=== PATIENT | male | born 1975 | race Caucasian/White ===

== ENCOUNTER → 2022-08-14 09:03 | Outpatient (BNVA) | payer SELFPAY | PROVIDERS: Visit Provider Nurse Practitioner Family | DX: S99.921A Unspecified injury of right foot, initial encounter (principal); W22.8XXA Striking against or struck by other objects, initial encounter | CPT/HCPCS: 73630 ==

== ENCOUNTER 2022-11-25 16:42 | Emergency (ER) | payer SELFPAY ==
[2022-11-25 16:59] VITALS: BP 151/88; PULSE 73; RESP 18; TEMP 36.4; O2SAT 97
[2022-11-25 17:05] VITALS: BP 156/95; PULSE 81; RESP 16; O2SAT 97
--- NOTE | 2022-11-25 17:16 | CTR_ITS ---
PROCEDURE INFORMATION: Exam: CT Maxillofacial Without Contrast Exam date and time: 11/25/2022 5:23 PM Age: 47 years old Clinical indication: Injury or trauma; Other: Tree limb to nose; Work related; Blunt trauma (contusions or hematomas) TECHNIQUE: Imaging protocol: Computed tomography of the face without contrast. Radiation optimization: All CT scans at this facility use at least one of these dose optimization techniques: automated exposure control; mA and/or kV adjustment per patient size (includes targeted exams where dose is matched to clinical indication); or iterative reconstruction. Other protocol: This patient has received 2 known CTs and 0 known cardiac nuclear medicine studies in the 12 months prior to the current study. COMPARISON: No relevant prior studies available. RADIATION DOSE METRICS: Total DLP (mGy-cm): 628.9 FINDINGS: Orbital cavities: Orbits are normal. Globes are unremarkable. Bones/joints: There are comminuted bilateral nasal bone fractures with displacement. Minimally displaced fractures also seen in the bony nasal septum. No other facial bone fractures. Paranasal sinuses: Normal. No air-fluid levels. Soft tissues: Soft tissue swelling is seen in the nose. Dental disease. CT/CT facial bones wo con* [id number] IMPRESSION: Comminuted and displaced bilateral nasal bone fractures with minimally displaced bony nasal septal fracture and overlying soft tissue swelling of the nose.
--- NOTE | 2022-11-25 17:16 | CTR_ITS ---
PROCEDURE INFORMATION: Exam: CT Cervical Spine Without Contrast Exam date and time: 11/25/2022 5:23 PM Age: 47 years old Clinical indication: Injury or trauma; Other: Tree limb to face; Blunt trauma TECHNIQUE: Imaging protocol: Computed tomography of the cervical spine without contrast. Radiation optimization: All CT scans at this facility use at least one of these dose optimization techniques: automated exposure control; mA and/or kV adjustment per patient size (includes targeted exams where dose is matched to clinical indication); or iterative reconstruction. Other protocol: This patient has received 2 known CTs and 0 known cardiac nuclear medicine studies in the 12 months prior to the current study. COMPARISON: CT head wo con* [id number] 11/25/2022 5:23 PM RADIATION DOSE METRICS: Total DLP (mGy-cm): 275.4 FINDINGS: Bones/joints: No acute fracture. Normal alignment. No significant disc bulge or herniation. No severe spinal canal stenosis. No significant neural foraminal narrowing. Lungs: Lung apices are normal. Soft tissues: Unremarkable. CT/CT cervical spin wo con* [id number] IMPRESSION: No acute findings.
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
--- NOTE | 2022-11-27 09:27 | DCPLANNER ---
Addendum entered by Latonya Zayas 12/21/22 08:09: facilities project manager received the following message from the ENT clinic regarding follow up appointment: spoke to pt, he states he has seen janae, and will call our office if he continues to have issues Original Note: facilities project manager had message to schedule a follow up appointment for patient with ENT. facilities project manager sent patients information to the front office staff at ENT. Patients information will be printed and reviewed. Clinic will call patient with appointment information.
== END 2022-11-25 19:25 | disposition home or self-care (01) ==
PROVIDERS: Emergency Provider Emergency Medicine
DX: S02.2XXA Fracture of nasal bones, initial encounter for closed fracture (principal); S06.0XAA Concussion with loss of consciousness status unknown, initial encounter; Z87.891 Personal history of nicotine dependence; W20.8XXA Other cause of strike by thrown, projected or falling object, initial encounter
CPT/HCPCS: 70450; 70486; 72125; 99284